=== PATIENT | male | born 1970 | race Caucasian/White ===

== ENCOUNTER 2021-01-05 11:57 | Emergency (ER) | payer BC, SELFPAY ==
[2021-01-05 11:58] VITALS: BP 130/82; PULSE 88; RESP 20; TEMP 37; O2SAT 98; BMI 23.7
--- NOTE | 2021-01-05 12:04 | XR_ITS ---
PROCEDURE: XR CHEST PORTABLE CLINICAL HISTORY: sob Covid19 positive, nonsmoker COMPARISON: No exams were available for comparison FINDINGS: The cardiomediastinal silhouette and pulmonary vascularity are within normal limits. The lungs are clear without infiltrates, suspicious nodules, or pleural effusions. There are scattered tiny calcified granulomata in both lower lung aguilar and there is a calcified left hilar node. There is no pleural fluid. No acute bony abnormalities. IMPRESSION: Old granulomatous disease, no acute chest pathology noted Dictated by: Dr. Milton Eubanks MD 01/05/2021 12:17 Dr. Milton Eubanks MD in [place] 01/05/2021 12:17
[2021-01-05 12:44] LABS: Basophils % 1.8 % (0.1-2.0); Eosinophils % 0.2 % (0.1-12.0); Hematocrit 48.5 % (42.0-52.0); Hemoglobin 16.3 g/dL (14.1-18.0); Lymphocytes # 0.7 K/mm3 (0.7-4.5); Lymphocytes % 31.2 % (10-50); Mean Corpuscular HGB Conc 33.6 g/dL (31.8-35.4); Mean Corpuscular Hemoglobin 30.9 pg (27.0-31.2); Mean Corpuscular Volume 92.1 fl (80-94); Mean Platelet Volume 8.9 fl (7.4-10.4); Monocytes # 0.2 K/mm3 (0.1-1.0); Monocytes % 9.8 % (1.7-9.3); Neutrophils # 1.2 K/mm3 (1.8-7.8); Neutrophils % 57.1 % (37.0-80.0); Platelet Count 133 K/mm3 (142-424); Red Blood Count 5.26 M/mm3 (4.60-6.20); Red Cell Distribution Width 13.5 % (11.5-17.5); White Blood Count 2.1 K/mm3 (4.8-10.8)
[2021-01-05 13:06] LABS: Alanine Aminotransferase 16 U/L (12-78); Albumin Level 3.8 g/dl (3.5-5.0); Albumin/Globulin Ratio 1.5 (1.1-1.8); Alkaline Phosphatase 53 U/L (38-126); Anion Gap 9.2 mEq/L (5-15); Aspartate Amino Transferase 26 U/L (17-59); Bilirubin,Total 0.4 mg/dl (0.2-1.3); Blood Urea Nitrogen 8 mg/dl (9-20); Calcium 8.5 mg/dl (8.4-10.2); Carbon Dioxide 30 mmol/L (22.0-30.0); Chloride 99 mmol/L (98-107); Creatinine Clearance Estimated 143 mL/min (50-200); Estimated Glomerular Filt Rate 120 ml/min (>60); GFR (African American) 145 ML/MIN (>60); Globulin 2.6 g/dL (1.3-3.2); Glucose 100 mg/dl (74-100); Potassium 4.2 mmoL/L (3.5-5.1); Sodium 134 mmol/L (136-145); Total Protein,Serum 6.4 g/dl (6.3-8.2)
--- NOTE | 2021-01-05 13:15 | [facility].EDGENADL ---
ED Disposition Clinical Impression: COVID-19 Disposition: Home, Self-Care Condition on Discharge: Good Prescriptions: Doxycycline Hyclate [Doxycycline 50mg Tablet] 100 mg PO BID #10 tab Transmission Status: Pending to [facility] [id number] [facility] Rx Referrals: Provider,Referral, [Primary Care Provider] - - Critical Care Critical Care Time: No Attestation: On 01/05/21, the high probability of a clinically significant, sudden or life threatening deterioration of the following system(s) required my full and direct attention, intervention and personal management. The time I documented below is in addition to time spent performing reported procedures but includes the following listed in this critical care notation. Medical Decision Making - Medical Records Medical records reviewed: Yes: I reviewed the patient's medical records. - Ramesh Inquiry Pt receiving controlled substance: No Vital Signs: 01/05/21 11:58 Temperature 98.6 F Temperature Source Oral Pulse Rate [Radial] 88 Respiratory Rate 20 Blood Pressure [Right Arm] 130/82 Blood Pressure Mean [Right Arm] 98 Blood Pressure Position [Right Arm] Sitting 02 Sat by Pulse Oximetry 98 Oxygen Delivery Method Room Air - Lab Data Lab Results 01/05/21 12:00: WBC 2.1 L, RBC 5.26, Hgb 16.3, Hct 48.5, MCV 92.1, MCH 30.9, MCHC 33.6, RDW 13.5, Plt Count 133 L, MPV 8.9, Neut % (Auto) 57.1, Lymph % (Auto) 31.2, [place] % (Auto) 9.8 H, Eos % (Auto) 0.2, Baso % (Auto) 1.8, Neut # (Auto) 1.2 L, Lymph # (Auto) 0.7, [place] # (Auto) 0.2, Eos # (Auto) 0.0, Baso # (Auto) 0.0 01/05/21 12:00: Sodium 134 L, Potassium 4.2, Chloride 99, Carbon Dioxide 30, Anion Gap 9.2, BUN 8 L, Creatinine 0.70, Estimated Creat Clear 143, Estimated GFR 120, Est GFR ( Amer) 145, Glucose 100, Calcium 8.5, Total Bilirubin 0.4, AST 26, ALT 16, Alkaline Phosphatase 53, Troponin I < 0.01, Total Protein 6.4, Albumin 3.8, Globulin 2.6, Albumin/Globulin Ratio 1.5 Result diagrams: 01/05/21 12:00 01/05/21 12:00 Orders (Tests/Meds): ED MEDICATIONS Generic Name Dose Route Start Last Admin Trade Name Mercedes PRN Reason Stop Dose Admin Sodium Chloride 1,000 mls @ 999 mls/hr 01/05/21 15:00 01/05/21 14:55 Sod Chlor 0.9% 1000ml Bag IV 01/05/21 16:00 999 mls/hr .[id number] DIEGO Administration ORDERS Category Date Time Status Troponin I Q3H Lab 01/05/21 15:15 Ordered Troponin I Q3H Lab 01/05/21 18:15 Ordered Medical Decision Narrative: Patient is a 50-year-old male presents to the ED today for further evaluation of shortness of breath in the setting of COVID-19 infection. Patient originally diagnosed on the of this month, states that he has had some shortness of breath at home has been otherwise well. Oxygen saturation initially here is 96 to 97%, patient has never been tachycardic here in the emergency department does not take any beta blocking agents, patient with no evidence of pulmonary embolism, no evidence of DVT, and PERC rule rules out pulmonary embolism as he is under 50 years old. Obtain chest x-ray for differential of pneumonia, CBC CMP and troponin. Patient is a candidate for the Covid monoclonal antibody, we have discussed this with him and he will receive this therapy in the emergency department. We will continue to monitor while he is on this for any evidence of hypoxia. On repeat evaluation, patient has discussed with his and is decided not to receive the infusion at this time. We have advised patient that he is welcome to come back to the ED for this, and I have discussed return precautions return to the ED with any new or worsening symptoms, given the patient symptoms worsened over the last day, I will prescribe him doxycycline to take at home, have discussed the usage of this medication at home, including not laying flat after taking, and the possibility of sunlight sensitivity. Patient is verbalized understanding with this plan and return precautions. Gener
[2021-01-05 13:31] LABS: Troponin I < 0.01 ng/ml (0.00-0.034)
--- NOTE | 2021-01-05 14:00 | PC.NURSE ---
DR SPOKE WITH PT REGARDING REGEN-COV INFUSION. PT SPEAKING WITH .
--- NOTE | 2021-01-05 15:00 | PC.NURSE ---
PT'S INFORMED NURSE THAT PT DIDN'T WANT THE INFUSION . SPOKE WITH PT WHO STATED IS THAT WHAT MY TOLD YOU? I DIDN'T SAY THAT ASKED PT IF HE WANTED TO CONTINUE WITH MEDS AND STATED THAT HE WOULDN'T GET IT AND JUST WANTED SOME IV FLUIDS.
[2021-01-05 16:02] VITALS: BP 132/74; PULSE 74; RESP 18; TEMP 36.6; O2SAT 98
== END 2021-01-05 16:03 | disposition home or self-care (01) ==
PROVIDERS: Emergency Provider Student in an Organized Health Care Education/Training Program
DX: U07.1 COVID-19 (principal); R06.02 Shortness of breath; R05.1 Acute cough; Z87.891 Personal history of nicotine dependence
CPT/HCPCS: 71045; 80053; 84484; 85025; 96365; 99282